=== PATIENT | female | born 1975 | race Two or more races ===

== ENCOUNTER 2023-12-12 18:54 | Emergency (ER) | payer OTHER ==
[~2023-12-12] VITALS: Ht 160 cm; Wt 50.8 kg
[2023-12-12 19:33] VITALS: BP 137/91; TEMP 98.1; O2SAT 100
[2023-12-12] MEDS ORDERED: ACET-2605 PO (20:56)
[2023-12-12] MEDS ORDERED: IBUP-1955 PO (20:56)
== END 2023-12-12 21:11 | disposition home or self-care (01) ==
LOC: ER 18:54
DX: S63.691A Other sprain of left index finger, initial encounter (principal); M79.89 Other specified soft tissue disorders; Z79.899 Other long term (current) drug therapy; X58.XXXA Exposure to other specified factors, initial encounter; Y93.67 Activity, basketball; Y92.89 Other specified places as the place of occurrence of the external cause; Y99.8 Other external cause status
CPT/HCPCS: 73140-TC